=== PATIENT | male | born 1970 | race Caucasian/White ===

== ENCOUNTER 2019-11-20 17:58 | Emergency (ER) | payer OTHER ==
[~2019-11-20] VITALS: Ht 175.3 cm; Wt 95.3 kg
[2019-11-20 18:02] VITALS: Ht 175.3 cm; Wt 95.3 kg
[2019-11-20 19:51] VITALS: BP 115/72
== END 2019-11-20 19:51 | disposition home or self-care (01) ==
LOC: ED 17:58
DX: S21.111A Laceration without foreign body of right front wall of thorax without penetration into thoracic cavity, initial encounter (principal); W26.8XXA Contact with other sharp object(s), not elsewhere classified, initial encounter; Y93.89 Activity, other specified; Y92.89 Other specified places as the place of occurrence of the external cause; Y99.8 Other external cause status
CPT/HCPCS: 90715; J2001; Q0092